=== PATIENT | male | born 1960 | race Hispanic/Latino ===

== ENCOUNTER 2019-06-04 17:49 | Observation (INO) | payer OTHER ==
[~2019-06-04] VITALS: Ht 167.6 cm; Wt 86.2 kg
[2019-06-04 18:02] LABS: BASOPHILS % (AUTO) 0.4 % (0.0-5.0); EOSINOPHILS % (AUTO) 3.3 % (0.0-8.0); HEMATOCRIT 43.2 % (42-54); LYMPHOCYTES % (AUTO) 47.5 % (21.0-51.0); MEAN CORPUSCULAR HEMOGLOBIN 28.9 pg (27.0-33.0); MEAN CORPUSCULAR VOLUME 84.9 fL (79-99); MONOCYTES % (AUTO) 11.4 % (3.0-13.0); NEUTROPHILS % (AUTO) 37.1 % (40.0-77.0); PLATELET COUNT (AUTO) 264 K/uL (130-400); RED BLOOD CELL COUNT(AUTO) 5.09 MIL/uL (4.50-6.20); RED CELL DISTRIBUTION WIDTH 13.4 % (11.0-15.5)
[2019-06-04 18:17] LABS: APPEARANCE,URINE Clear (CLEAR); BILIRUBIN,URINE Negative (NEGATIVE); COLOR,URINE Yellow (YELLOW); GLUCOSE, URINE (UA) Negative (NEGATIVE); KETONES,URINE Negative (NEGATIVE); LEUKOCYTE ESTERASE ,URINE Negative (NEGATIVE); NITRATE,URINE Negative (NEGATIVE); OCCULT BLOOD,URINE Negative (NEGATIVE); PROTEIN,URINE Negative (NEGATIVE); UROBILINOGEN,URINE 0.2 mg/dL (0.2-1.0)
[2019-06-04 18:18] LABS: INR 0.92 (0.85-1.15); PARTIAL THROMBOPLASTIN TIME 25.8 SEC (26.3-35.5)
[2019-06-04 18:19] LABS: CREATININE 0.9 mg/dL (0.5-1.5); POTASSIUM 3.8 mmol/L (3.5-5.1)
[2019-06-04 18:23] LABS: ALBUMIN 4.4 g/dL (3.5-5.0); BILIRUBIN,TOTAL 0.4 mg/dL (0.2-1.0); TOTAL PROTEIN, SERUM 8.4 g/dL (6.0-8.3)
[2019-06-04 18:24] LABS: AMPHET/METH SCREEN,URINE NEGATIVE (NEGATIVE); BARBITURATE SCREEN, URINE NEGATIVE (NEGATIVE); BENZODIAZEPINES SCREEN,URINE NEGATIVE (NEGATIVE); CANNABINOID SCREEN,URINE NEGATIVE (NEGATIVE); COCAINE SCREEN,URINE NEGATIVE (NEGATIVE); OPIATE SCREEN,URINE NEGATIVE (NEGATIVE); PHENCYCLIDINE SCREEN,URINE NEGATIVE (NEGATIVE)
[2019-06-04] MEDS ORDERED: ACETAMINOPHEN 325 MG TAB PO PRN (21:15)
[2019-06-04] MEDS ORDERED: LACTULOSE 20 GM/30 ML UDCUP PO PRN (21:15)
[2019-06-04] MEDS ORDERED: ONDANSETRON HCL 4 MG/2 ML VIAL IV PRN (21:15)
[2019-06-04] MEDS ORDERED: HYDRALAZINE HCL 20 MG/ML VIAL IV PRN (21:30)
[2019-06-04 21:47] LABS: HEMOGLOBIN A1C 6.1 % (4.0-6.0)
[2019-06-04 21:48] LABS: CHOLESTEROL 203 mg/dL (<200); HDL CHOLESTEROL 135 mg/dL (29-71); LDL DIRECT 113 mg/dL (0-99); TRIGLYCERIDES 252 mg/dL (30-200)
[2019-06-04 23:00] VITALS: BP 152/80
--- NOTE | 2019-06-04 23:00 | NUR ---
PATIENT BACK FROM MRI. JONAS RECEIVED FROM ER WITH A DIAGNOSIS OF CVA VS TIA UNDER THE CARE OF . PATIENT AWAKE AND ALERT. NO COMPLAINTS OF PAIN AND OR CHEST PAIN VOICED. NO NEURO DEFICITS NOTED. RIGHT SIDE FACIAL DROOP NOTED. RESP EVEN AND UNLABORED. NO SOB NOTED. ON ROOM AIR. VITALS STABLE. AFEBRILE. HEAD TO TOE ASSESSMENT DONE. ORIENTATED TO ROOM AND HOSPITAL. NO SIGNS OF DISTRESS NOTED. UP AD DYLAN. CALL LIGHT WITHIN REACH. WILL CONTINUE TO BE OBSERVED. Addendum: 06/05/19 at 0038 by CHASTITY YEE RN RN Amended: Links added.
[2019-06-05 03:57] VITALS: BP 126/68
[2019-06-05 04:28] LABS: BASOPHILS % (AUTO) 0.3 % (0.0-5.0); EOSINOPHILS % (AUTO) 3.1 % (0.0-8.0); HEMATOCRIT 39.7 % (42-54); LYMPHOCYTES % (AUTO) 48.1 % (21.0-51.0); MEAN CORPUSCULAR HEMOGLOBIN 29.1 pg (27.0-33.0); MEAN CORPUSCULAR HGB CONC 33.8 g/dL (32.0-36.0); MEAN CORPUSCULAR VOLUME 86.1 fL (79-99); MONOCYTES % (AUTO) 13.3 % (3.0-13.0); NEUTROPHILS % (AUTO) 34.9 % (40.0-77.0); PLATELET COUNT (AUTO) 241 K/uL (130-400); RED BLOOD CELL COUNT(AUTO) 4.61 MIL/uL (4.50-6.20); RED CELL DISTRIBUTION WIDTH 13.6 % (11.0-15.5); WHITE BLOOD COUNT (AUTO) 6.2 K/uL (4.8-10.8)
[2019-06-05 04:32] LABS: CREATININE 0.9 mg/dL (0.5-1.5); POTASSIUM 3.8 mmol/L (3.5-5.1)
[2019-06-05] MEDS: INSULIN HUMULIN R 100 UNIT/ML 3ML SQ SCH ×2 (05:36→11:30)
[2019-06-05 08:00] VITALS: BP 119/75
[2019-06-05] MEDS ORDERED: ASPIRIN 325 MG TABLET PO SCH (09:00)
[2019-06-05] MEDS: FAMOTIDINE 20MG TAB 20 MG TAB PO SCH ×2 (09:00→20:50)
--- NOTE | 2019-06-05 09:30 | NUR ---
DYSPHAGIA EVAL COMPLETED. -S/S OF ASPIRATION. RECOMMEND REGULAR TEXTURE, THIN LIQUIDS; PILLS WHOLE WITH LIQUIDS. Addendum: 06/05/19 at 1334 by RASHAWN CLANCY, [facility] Amended: Links added.
--- NOTE | 2019-06-05 09:45 | NUR ---
COGNITIVE-LINGUISTIC EVALUATION COMPLETED. WITHIN FUNCTIONAL LIMITS. EVALUATION: Pt AAOX3. Pt REQUESTS WANTS AND NEEDS INDEPENDENTLY. Pt WITH MILD/MINIMAL RIGHT LABIAL DROOP, NOT INTERFERING WITH MOTOR SPEECH. Pt INTELLIGIBLE AT 100% ACCURACY TO THE UNFAMILIAR LISTENER. Pt COMMUNICATING AT CONVERSATIONAL LEVEL WITH NO DEFICITS IDENTIFIED AT THIS TIME. Pt COMPLETED COGNITIVE-LINGUISTIC EVALUATION TARGETING: ORIENTATION, ATTENTION/CONCENTRATION, MEMORY (IMMEDIATE, SHORT-TERM AND LONG-TERM), PROBLEM SOLVING, LOGIC/REASONING/INFERENCE, THOUGHT ORGANIZATION, FUNCTIONAL MATH AND TELLING TIME. Pt ABLE TO COMPLETE TASKS WITH CORRECT AND TIMELY ANSWERS TO ALL SECTIONS. MOTOR SPEECH G-CODES: [id number] Addendum: 06/05/19 at 1341 by RASHAWN CLANCY [facility] Amended: Links added.
[2019-06-05 12:00] VITALS: BP 143/81
[2019-06-05] MEDS: ENOXAPARIN SODIUM 40 MG/0.4 ML SYRINGE SQ SCH (12:06)
--- NOTE | 2019-06-05 13:28 | NUR ---
INITIAL SW spoke with patient. He states he lives with his , Elida Clifford, [phone]. No home services. DME: BPM, glucometer (no insulin). 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 Patient also drives. No PCP but when needing to see MD he goes to [facility] in [place]. Pharmacy is [facility] located [facility]. DCP is home. Addendum: 06/05/19 at 1331 by GILL GRIJALVA SS Amended: Links added.
[2019-06-05] MEDS: CEFTRIAXONE SODIUM 1 GM IVP SCH ×2 (13:31→23:44)
--- NOTE | 2019-06-05 13:45 | NUR ---
NUTRITION EDUCATION COMPLETED LABS REVIEWED (TG 252, CHOL 203, LDL 113, A1C 6.1). RD PROVIDED PREDIABETES, HEART HEALTHY AND STROKE MEDICAL NUTRITION THERAPY. LAB GOALS WERE ESTABLISHED WITH THE PT. FOODS RECOMMENDED/ TO AVOID WERE PROVIDED. ALL QUESTIONS WERE ANSWERED AND PT VERBALIZED UNDERSTANDING. EDUCATION MATERIALS WERE PROVIDED IN [place]. Addendum: 06/05/19 at [address] Amended: Links added.
[2019-06-05 16:00] VITALS: BP 157/86
[2019-06-05 20:00] VITALS: BP 145/89
[2019-06-05] MEDS ORDERED: ATORVASTATIN CALCIUM 40 MG TABLET PO SCH (21:00)
[2019-06-05] MEDS ORDERED: ATORVASTATIN CALCIUM 20 MG TABLET PO SCH (21:00)
[2019-06-06] VITALS: BP 140/91
[2019-06-06] MEDS: ACETAMINOPHEN 325 MG TAB PO PRN ×2 (00:54→09:25)
[2019-06-06 04:00] VITALS: BP 134/71
[2019-06-06 08:00] VITALS: BP 129/80
[2019-06-06] MEDS: FAMOTIDINE 20MG TAB 20 MG TAB PO SCH (09:00)
[2019-06-06] MEDS ORDERED: ASPIRIN 81 MG EC TAB PO SCH (09:00)
[2019-06-06] MEDS: ENOXAPARIN SODIUM 40 MG/0.4 ML SYRINGE SQ SCH (09:26)
[2019-06-06] MEDS ORDERED: AMOX-426 PO (10:24)
[2019-06-06] MEDS ORDERED: AMLO2.5T4 PO (10:24)
[2019-06-06] MEDS ORDERED: ATOR40TA69 PO (10:24)
[2019-06-06] MEDS ORDERED: AMLO2.5T2 PO (10:24)
[2019-06-06] MEDS ORDERED: AEC81 PO (10:24)
[2019-06-06] MEDS ORDERED: AMLODIPINE BESYLATE 2.5 MG TAB PO SCH (10:30)
[2019-06-06 12:00] VITALS: BP 136/78
--- NOTE | 2019-06-06 13:00 | NUR ---
DC INSTRUCTIONS GIVEN TO PATIENT USING TEACH BACK IV CATHETER REMOVED INTACT, NO BLEEDING.
== END 2019-06-06 14:00 | disposition home or self-care (01) ==
LOC: EDH 17:49 → EDHIP 21:09 → 3CH 21:55
PROVIDERS: ADMIT Internal Medicine; ATTEND Internal Medicine
DX: G45.9 Transient cerebral ischemic attack, unspecified (principal); E78.5 Hyperlipidemia, unspecified; J32.0 Chronic maxillary sinusitis; E66.9 Obesity, unspecified; Z72.0 Tobacco use
CPT/HCPCS: 36415 ×2; 70450; 70551; 71045; 71250; 80048; 80053; 80061; 80305; 81003; 82550; 82948 ×6; 83036; 83721; 84145; 84484; 85025 ×2; 85610; 85730; 92522; 92610; 93005; 93306; 93356; 93880; 96372 ×2; 96374; 96376; 99285; G0378 ×4; J0696 ×2; J1650 ×2